=== PATIENT | male | born 1960 | race African-American/Black ===

== ENCOUNTER 2024-07-21 18:25 | Emergency (ER) | payer BC ==
[~2024-07-21] VITALS: Ht 175.3 cm; Wt 70.0 kg
[2024-07-21 18:26] VITALS: O2SAT 95
[2024-07-21 19:31] LABS: DIFFERENTIAL COMMENT 1; HEMOGLOBIN. 13.4 g/dL (14.0-18.0); MEAN CORPUSCULAR HEMOGLOBIN 30.1 pg (28.0-32.0); MEAN CORPUSCULAR HGB CONC 33.4 g/dL (31.0-37.0); MEAN PLATELET VOLUME 8.4 fl (7.4-10.4); PLATELET 211 x1000/uL (130-400); RED BLOOD CELL COUNT 4.44 mill/uL (4.7-6.1); RED CELL DISTRIBUTION WIDTH 13.7 % (11.6-14.6); WHITE BLOOD COUNT 4.2 x1000/uL (4.5-11.0)
[2024-07-21 19:39] LABS: CHLORIDE 102 mEq/L (98-107); POTASSIUM 3.3 mEq/L (3.5-5.1); SODIUM 132 mEq/L (136-145)
[2024-07-21 19:40] LABS: CARBON DIOXIDE 20 mEq/L (21-32); INR 1.2; PROTHROMBIN TIME 12.9 sec (9.6-11.0)
[2024-07-21 19:41] LABS: CALCIUM 8.2 mg/dL (8.7-10.4)
[2024-07-21 19:45] LABS: CREATININE 2.2 mg/dL (0.6-1.3); GLUCOSE 131 mg/dL (70-105); UREA NITROGEN BLOOD 39 mg/dL (9-23)
[2024-07-21 19:47] LABS: PLATELET ESTIMATE NORMAL
[2024-07-21 19:48] LABS: TROPONIN I HIGH SENSITIVITY 15 ng/L (3.0-53)
[2024-07-21] MEDS ORDERED: POTA-354 MT (19:57)
[2024-07-21 20:20] VITALS: BP 126/63; PULSE 75; RESP 19; TEMP 36.89184; O2SAT 99
== END 2024-07-21 20:23 | disposition home or self-care (01) ==
LOC: ER 18:25
DX: I95.1 Orthostatic hypotension (principal); I12.9 Hypertensive chronic kidney disease with stage 1 through stage 4 chronic kidney disease, or unspecified chronic kidney disease; N18.32 Chronic kidney disease, stage 3b
CPT/HCPCS: 36415; 71045; 80048; 83880; 84484; 85025; 99284